=== PATIENT | female | born 1990 | race Caucasian/White ===

== ENCOUNTER 2017-07-14 02:45 | Emergency (ER) | payer MEDICAID ==
[2017-07-14] MEDS ORDERED: CEPHALEXIN 500 MG CAPSULE PO ONE (04:04)
[2017-07-14] MEDS ORDERED: KETOROLAC TROMETHAMINE INJ/PF 30 MG/1 ML SDV IV ONE (04:05)
--- NOTE | 2017-07-14 04:12 | ER Document Report ---
ED General - General Chief Complaint: Abscess Stated Complaint: POSSIBLE ABCESS ON BUTTOCKS Time Seen by Provider: 07/14/17 03:29 Mode of Arrival: Ambulatory Information source: Patient Notes: Patient with complaint of possible abscess to her left fold. Patient reports that this is been present for approximately 3 days and that was draining 2 days ago. Patient denies history of MRSA patient reports that she has had an abscess before and has had to have it drained. TRAVEL OUTSIDE OF THE [place] IN LAST 30 DAYS: No - Related Data Allergies/Adverse Reactions: No Known Allergies Allergy (Verified 07/14/17 02:48) Past Medical History - General Information source: Patient - Social History Smoking Status: Never Smoker Frequency of alcohol use: None Drug Abuse: None Family History: Reviewed & Not Pertinent Patient has suicidal ideation: No Patient has homicidal ideation: No - Medical History Medical History: Negative Renal/ Medical History: Denies: Hx Peritoneal Dialysis Surgical Hx: Negative - Immunizations Immunizations up to date: Yes Review of Systems - Review of Systems Constitutional: No symptoms reported EENT: No symptoms reported Cardiovascular: No symptoms reported Respiratory: No symptoms reported Gastrointestinal: No symptoms reported Genitourinary: No symptoms reported Female Genitourinary: No symptoms reported Musculoskeletal: No symptoms reported Skin: See HPI Hematologic/Lymphatic: No symptoms reported Neurological/Psychological: No symptoms reported Physical Exam - Vital signs Vitals: Temp Pulse Resp BP Pulse Ox 98.9 F 95 20 97/67 L 98 07/14/17 02:49 07/14/17 02:49 07/14/17 02:49 07/14/17 02:49 07/14/17 02:49 - Notes Notes: PHYSICAL EXAMINATION: GENERAL: Well-appearing, well-nourished and in no acute distress. HEAD: Atraumatic, normocephalic. EYES: Pupils equal round and reactive to light, extraocular movements intact, conjunctiva are normal. ENT: Nares patent, oropharynx clear without exudates. Moist mucous membranes. NECK: Normal range of motion, supple without lymphadenopathy LUNGS: Breath sounds clear to auscultation bilaterally and equal. No wheezes rales or rhonchi. HEART: Regular rate and rhythm without murmurs ABDOMEN: Soft, nontender, nondistended abdomen. No guarding, no rebound. No masses appreciated. Female : deferred Musculoskeletal: Normal range of motion, no pitting or edema. No cyanosis. NEUROLOGICAL: Cranial nerves grossly intact. Normal speech, normal gait. Normal sensory, motor exams PSYCH: Normal mood, normal affect. SKIN: Warm, Dry, normal turgor, no rash noted. Approximate 3cm circular erythemous are to left buttock. Non-fluctuant with small area that appears to be coming to a head. Course - Re-evaluation Re-evalutation: Patient with probable abscess mild surrounding cellulitis to the left buttock. There is no fluctuance however there is a small "head". Patient declined to allow me to jens this with a needle against my advice. Patient will be instructed to warm compresses and take antibiotics as prescribed. Patient agrees to return as increasing pain or if she develops a fever. - Vital Signs Vital signs: Temp Pulse Resp BP Pulse Ox 97.4 F 88 18 98/66 L 100 07/14/17 04:18 07/14/17 04:18 07/14/17 04:18 07/14/17 04:18 07/14/17 04:18 Discharge - Discharge Clinical Impression: Abscess Cellulitis Qualifiers: Site of cellulitis: buttock Qualified Code(s): L03.317 - Cellulitis of buttock Condition: Good Disposition: HOME, SELF-CARE Additional Instructions: Abscess You have an abscess (boil). This a pus-forming infection, usually due to staph. Some boils may be left to drain on their own, but most require lancing. From the time the tender lump first appears, it may be three or four days before the abscess is ready to jens. Local heat and rest help at this stage of treatment. An antibiotic may prevent spread of the infection. Once the abscess is opened, packing may be placed into it. This is done so pus is not sealed inside by premature closure of the cavity. The packing will be removed at your follow-up visit or you may be advised to remove it yourself at home. Sometimes this packing must be replaced a few times during healing. The wound will heal with surprisingly little scar. Depending on the size and location of an abscess, healing can take one to four weeks. You may shower and wash the area around the incision site two or three times a day. Antibiotics may be prescribed, but are usually not necessary after an abscess has been drained. If you develop fever, chilling, worsening pain, or increasing swelling in the area, call the doctor or return immediately. Cellulitis You have an infection of your skin and underlying soft tissues called cellulitis. This is due to bacteria, which can enter through any break in the skin, or even through an irritated hair follicle. Untreated, cellulitis will usually worsen. Antibiotics are required. Usually, warm packs or warm soaks, and elevation of the infected area are recommended. You should start getting better within 24 to 36 hours. Most infections respond quickly to the right medication. Follow-up care is important, however, to check for abscess (boil) formation, unsuspected foreign body, or resistant infection. If you develop fever, chills, or if the area of infection is becoming rapidly more swollen or painful, call the doctor at once. You have declined to have your abscess drained today. The standard treatment for abscess is incision and drainage. Please use warm compresses to the area 3- 4 times daily. Take two hot showers daily. Take the antibiotics that I have prescribed to you. Please return to the emergency department if you develop worsening pain, swelling to the area or if you develop a fever. Prescriptions: Cephalexin Monohydrate [Keflex 500 mg Capsule] 500 mg PO Q6H 5 Days #20 capsule
[2017-07-14] MEDS ORDERED: KETOROLAC TROMETHAMINE 60 MG/2 ML SDV IM ONE (04:32)
[2017-07-14 04:36] VITALS: BP 98/66
== END 2017-07-14 04:36 | disposition home or self-care (01) ==
LOC: ER 02:45
DX: L02.91 Cutaneous abscess, unspecified (principal); L03.317 Cellulitis of buttock
CPT/HCPCS: 99282; 96372; J1885